=== PATIENT | male | born 2000 | race Caucasian/White ===

== ENCOUNTER 2019-06-29 17:05 | Emergency (ER) | payer OTHER ==
[~2019-06-29] VITALS: Ht 167.6 cm; Wt 49.0 kg
[~2019-06-29 17:05] MED LIST: AMOX TR-K400 MG/5 M PO; PERIACTIN; VYVANSE30 MG PO; ZOLOFT 50 MG TA50 M1 PO
[2019-06-29 17:34] LABS: ABSOLUTE MONOCYTES 0.4 thou/uL (0.0-1.2); ABSOLUTE NEUTROPHILS 4.4 thou/uL (1.6-8.1); BASOPHILS 0.3 %; HEMATOCRIT 45.3 % (42.0-52.0); HEMOGLOBIN 15.9 gm/dL (14.0-18.0); LYMPHOCYTES 17.7 %; MCH 33.4 pg (26.0-34.0); MCHC 35.1 g/dL (28.0-37.0); MCV 95.3 fL (80.0-100.0); MONOCYTES 6.3 %; MPV 9.3 fl. (7.2-11.1); NUCLEATED RBCS 0 /100WBC; PLATELET COUNT* 219 thou/uL (150-400); POLYS 75.7 %; RBC 4.75 mil/uL (4.50-6.00); RDW-CV 12.4 % (10.5-14.5); WBC 5.8 thou/uL (4.0-11.0)
[2019-06-29 17:54] LABS: ACETAMINOPHEN < 2 ug/mL (10-30); ALCOHOL < 10 mg/dL (<10); SALICYLATE < 2.8 mg/dL (2.8-20.0)
[2019-06-29 17:59] LABS: ALBUMIN 4.8 g/dL (3.4-5.0); ALKALINE PHOSPHATASE 104 U/L (46-116); ANION GAP 8 mmol/L (7-16); CALCIUM 11.3 mg/dL (8.5-10.1); CHLORIDE 99 mmol/L (98-107); CO2 29 mmol/L (21-32); CREATININE 0.9 mg/dL (0.6-1.3); GLUCOSE 109 mg/dL (70-99); SGOT 19 U/L (15-37); SGPT 23 U/L (30-65); SODIUM 136 mmol/L (136-145); TOTAL PROTEIN 7.9 g/dL (6.4-8.2); TROPONIN-I LEVEL <0.06 ng/mL (<0.06)
[2019-06-29 18:04] LABS: BUN 13 mg/dL (7-18)
[2019-06-29 18:41] LABS: URINE BILIRUBIN NEGATIVE (Negative); URINE BLOOD NEGATIVE (Negative); URINE CLARITY CLEAR; URINE COLOR YELLOW; URINE GLUCOSE-RANDOM NEGATIVE (Negative); URINE KETONES 2+ (Negative); URINE LEUKOCYTES-REFLEX NEGATIVE (Negative); URINE NITRITE-REFLEX NEGATIVE (Negative); URINE PROTEIN NEGATIVE (Negative); URINE SPECIFIC GRAVITY >= 1.030 (1.005-1.030); URINE UROBILINOGEN 0.2 E.U./dl (0.2-1.0)
[2019-06-29 18:51] LABS: AMP/METHAMP Negative (Negative); BARBITURATES Negative (Negative); BENZODIAZEPINES Negative (Negative); COCAINE Negative (Negative); METHADONE Negative (Negative); OPIATES Negative (Negative); PCP Negative (Negative); THC Negative (Negative)
[2019-06-29 19:15] VITALS: BP 112/62
--- NOTE | 2019-06-29 19:29 | EKG ---
[place] [address] ELECTROCARDIOGRAM REPORT Name: CORI SOLANO Room: [facility]#: [id number] Admission: 06/29/19 Attend Phys: Discharge: 06/29/19 Date of : [birth year] Report #: [id number] THIS REPORT FOR: //name// [facility] ED Test Date: 2019-06-29 Test Time: 17:41:52 Pat Name: CORI SOLANO Department: Room: Gender: M [employer]: : 2000 Requested By: Rey Gonzales Order Number: [id number] MD: Kenrick Jones Measurements Intervals Lynn Rate: 81 P: 67 NM: 146 QRS: 56 QRSD: 89 T: 55 QT: 344 QTc: 400 Interpretive Statements Sinus rhythm ST elev, probable normal early repol pattern Baseline wander in lead(s) I No previous ECG available for comparison Electronically Signed On 06-29-2019 19:29:03 CDT by Kenrick Jones [email or web address] <ELECTRONICALLY SIGNED> By: Kenrick Jones MD, [facility] 06/29/19 1929 40 40 Kenrick Jones MD, FACC /EPI
== END 2019-06-29 19:15 | disposition home or self-care (01) ==
LOC: M.ERS 17:05
PROVIDERS: Emergency Medicine Emergency Medical Services
DX: F41.9 Anxiety disorder, unspecified (principal); R00.2 Palpitations; E03.9 Hypothyroidism, unspecified; F90.9 Attention-deficit hyperactivity disorder, unspecified type; F84.5 Asperger's syndrome